=== PATIENT | male | born 1975 | race Two or more races ===

== ENCOUNTER 2018-05-30 05:59 | Inpatient (IN) | payer OTHER ==
[~2018-05-30] VITALS: Ht 180.3 cm; Wt 87.1 kg
[2018-05-30] VITALS (19 sets, daily range): BP systolic 95–131; BP diastolic 55–88
[2018-05-30] MEDS ORDERED: Zemuron 50mg/5ml Inj IV ONE (06:14)
[2018-05-30] MEDS ORDERED: Heparin 1000 units/ml 1ml Vial ONE (06:24)
[2018-05-30] MEDS ORDERED: Bupivacaine 0.5% 10ml INJ ONE (06:25)
[2018-05-30] MEDS ORDERED: Lidocaine 1% Plain 30 ml INJ ONE ×2 (06:25→06:37)
[2018-05-30] MEDS ORDERED: Thrombin 5000 units TOPIC ONE (06:25)
[2018-05-30] MEDS ORDERED: Ropivacaine 5mg/ml Vial 30ml INJ ONE (06:25)
[2018-05-30] MEDS ORDERED: Bacitracin 50000 Units Vial ONE (06:26)
[2018-05-30] MEDS ORDERED: LR 1000ml 1,000 ML IVLG SCH (06:31)
[2018-05-30] MEDS ORDERED: NKM (06:33)
--- NOTE | 2018-05-30 06:33 | Anethesia Preoperative Eval ---
Anesthesia Pre-op PMH/ROS General Date of Evaluation: May 30, 2018 Time of Evaluation: 07:11 Anesthesiologist: Celia ASA Score: ASA 2 Mallampati Score Class I : Soft palate, uvula, fauces, pillars visible Class II: Soft palate, uvula, fauces visible Class III: Soft palate, base of uvula visible Class IV: Only hard plate visible Mallampati Classification: Class II Surgeon: Vasile Diagnosis: Back Pain Surgical Procedure: ALIF L4-5, L5-S1 Anesthesia History: none Family History: no anesthesia problems Allergies: Coded Allergies: No Known Allergies (Unverified , 05/30/18) Medications: see eMAR Patient NPO?: Yes NPO Date: May 29, 2018 NPO Time: 2199 Past Medical History Pulmonary: Reports: asthma Anesthesia Pre-op Phys. Exam Physician Exam Last Vital Signs Date Time Temp Pulse Resp B/P (MAP) Pulse Ox O2 Delivery O2 Flow Rate FiO2 05/30/18 06:25 Room Air 05/30/18 06:25 97.2 76 18 124/69 (87) 100 Constitutional: NAD Neurologic: CN 2-12 intact Cardiovascular: RRR Respiratory: CTA Gastrointestinal: S/NT/ND Airway Exam Mallampati Score: Class II MO: full ROM: full Teeth: missing, intact Anesthesia Pre-op A/P Risk Assessment & Plan Assessment: ASA 2 Plan: GA, GlideScope Go, SED Status Change Before Surgery: No Pre-Antibiotics Dru Grams Ancef IV Given Within 1 Hr of Incision: Yes Time Given: 07:31 Jaxson Yang MD May 30, 2018 06:33
[2018-05-30] MEDS ORDERED: Sodium Chloride 10ml vial INJ ONE (06:41)
[2018-05-30] MEDS ORDERED: Lidocaine 1% MPF 10mg/ml 5ml ONE (06:41)
[2018-05-30] MEDS ORDERED: Dexamethasone 4mg/ml vial ONE (06:41)
[2018-05-30] MEDS ORDERED: Ketorolac 30mg Inj IV PRN ×2 (06:45)
[2018-05-30] MEDS ORDERED: LORazepam Inj 2mg/ml 1ml IV PRN (06:45)
[2018-05-30] MEDS ORDERED: Metoclopramide 10mg/2ml Inj IVP PRN (06:45)
[2018-05-30] MEDS ORDERED: DiphenhydrAMINE 50mg/ml Inj IVP PRN (06:45)
[2018-05-30] MEDS ORDERED: oxyCODONE HCL/Acetaminophen 5/325mg ORAL PRN (06:45)
[2018-05-30] MEDS ORDERED: fentaNYL 100 mcg/2 mL IV PRN (06:45)
[2018-05-30] MEDS ORDERED: Meperidine 50mg/ml Inj(FOR RIGORS ONLY) IVP PRN (06:45)
[2018-05-30] MEDS ORDERED: HYDROcodone/Acetamin 7.5/325 tab ORAL PRN (06:45)
[2018-05-30] MEDS ORDERED: Norco 5mg/325mg tab ORAL PRN (06:45)
[2018-05-30] MEDS ORDERED: Atropine Sulfate 0.4mg/ml inj IVP PRN (06:45)
[2018-05-30] MEDS ORDERED: Midazolam 2mg/2ml Inj IVP PRN (06:45)
[2018-05-30] MEDS ORDERED: Hydromorphone 0.5mg/0.5ml inj IVP PRN (06:45)
[2018-05-30] MEDS ORDERED: LR 1000ml ONE (07:00)
[2018-05-30] MEDS ORDERED: ceFAZolin sod 1 GM in NS 55 ML IVPB ONE (07:00)
[2018-05-30] MEDS ORDERED: Dexamethasone 20mg/5ml IVP ONE (07:00)
[2018-05-30] MEDS ORDERED: Propofol 1,000mg/ 100ml btl IV ONE (07:00)
[2018-05-30] MEDS ORDERED: NS Irrig 1000ml ONE (07:00)
[2018-05-30] MEDS ORDERED: Sterile Water Irrig 1000ml IRRIG ONE (07:00)
[2018-05-30] MEDS ORDERED: Acetaminophen (Non formulary) 100 ML IV ONE (07:00)
--- NOTE | 2018-05-30 07:06 | Immediate Post-Op Evaluation ---
Immediate Post-Op Evalulation Immediate Post-Op Evalulation Procedure: ALIF L4-5, L5-S1, Post Pedicle Screws Date of Evaluation: May 30, 2018 Time of Evaluation: 11:19 IV Fluids: 1000 LR Blood Products: 0 Estimated Blood Loss: 50 Urinary Output: 200 Blood Pressure Systolic: 122 Blood Pressure Diastolic: 71 Pulse Rate: 66 Respiratory Rate: 16 O2 Sat by Pulse Oximetry: 99 Temperature (Fahrenheit): 98.4 Pain Score (1-10): 2 Nausea: No Vomiting: No Complications 0 Patient Status: awake, reacts, patent, extubated, none Hydration Status: adequate Dru Grams Ancef IV Given Within 1 Hr of Incision: Yes Time Given: 07:31 Jaxson Yang MD May 30, 2018 07:06
--- NOTE | 2018-05-30 07:19 | Pre-Procedure Note/Attestation ---
Pre-Procedure Note/Attestation Complete Prior to Procedure Planned Procedure: not applicable Procedure Narrative: ALIF L4-L5, L5-S1 internal fixation Possible pedicle screws L4-L5=S1 L5-S1 discectomy Attestation I attest that I discussed the nature of the procedure; its benefits; risks and complications; and alternatives (and the risks and benefits of such alternatives ), prior to the procedure, with the patient (or the patient's legal retail representative). I attest that, if there was a reasonable possibility of needing a blood transfusion, the patient (or the patient's legal retail representative) was given the [facility] standardized written summary, pursuant to the Christiano Yolanda Blood Safety Act ([place] Health and Safety Code # 1645, as amended). I attest that I re-evaluated the patient just prior to the surgery and that there has been no change in the patient's H&P, except as documented below: Edgar Burnette MD May 30, 2018 07:19
[2018-05-30] MEDS ORDERED: fentaNYL 100 mcg/2 mL IV ONE ×2 (07:56→10:14)
[2018-05-30] MEDS ORDERED: Metoprolol 5mg/5ml Inj ONE (07:57)
[2018-05-30] MEDS ORDERED: Labetalol 5mg/ml 20ml vial IV ONE (08:06)
--- NOTE | 2018-05-30 09:56 | 48 Hour Post Anesthesia Eval ---
Post Anesthesia Evaluation Procedure: ALIF L4-5, L5-S1, Post Pedicle Screws Date of Evaluation: May 30, 2018 Time of Evaluation: 13:43 Blood Pressure Systolic: 118 0: 64 Pulse Rate: 71 Respiratory Rate: 18 Temperature (Fahrenheit): 98.6 O2 Sat by Pulse Oximetry: 99 Airway: patent Nausea: No Vomiting: No Pain Intensity: 3 Hydration Status: adequate Cardiopulmonary Status: Stable Mental Status/LOC: patient returned to baseline Follow-up Care/Observations: 0 Post-Anesthesia Complications: 0 Follow-up care needed: N/A Jaxson Yang MD May 30, 2018 09:56
[2018-05-30] MEDS ORDERED: Neostigmine 1mg/ml 10ml Inj ONE (10:45)
[2018-05-30] MEDS ORDERED: Glycopyrrolate 0.2mg/ml 1ml Vial ONE (10:45)
[2018-05-30] MEDS ORDERED: Naloxone 0.4mg/ml Inj ONE (10:48)
--- NOTE | 2018-05-30 11:09 | Brief Operative Note ---
Immediate Post Operative Note Operative Note Pre-op Diagnosis: Trauma Lumbar Soine instabilit, HNP Procedure: ALIF L4-L5, L5-S1 Anterior internal fixation, Microscope, Posterior microdiscectomy L5-S1 Post-op Diagnosis: same as pre-op Findings: consistent w/pre-op dx studies Surgeon: Vasile OROSCO Evidence Technician: Abby Agee MD, MD Anesthesiologist: Celia OROSCO Anesthesia: general Specimen: yes Complications: none Condition: stable Fluids: anesthesia Estimated Blood Loss: minimal Drains: none Implant(s) used?: Yes Edgar Burnette MD May 30, 2018 11:09
[2018-05-30] MEDS ORDERED: Rate Change PCA 1 Each MISC PRN ×2 (11:30)
[2018-05-30] MEDS ORDERED: PCA Morphine 1mg/ml 30 ML IV PRN (11:30)
[2018-05-30] MEDS: PCA Morphine 1mg/ml 30 ML IV PRN (11:41)
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
[2018-05-30] MEDS ORDERED: PCA Education Pamphlet MISC ONE (12:00)
--- NOTE | 2018-05-30 13:30 | NUR ---
NURSE NOTES: Received report from Denisa RN, pt a/a/o x4 with no signs of distress, however pt complains of pain 02/26 RN instructed and reinforced how to use CHAR PULLER. Morris in place draining clear yellow urine. surgical dressing anterior and posterior dry and intact. IV on right hand gauge #18 D21/2 NS @125ml/hr. pt is NPO except ice chips and meds. call light within reach, bed in lowest position. side rales up x2. I will f/u as needed.
[2018-05-30] MEDS ORDERED: Naloxone 0.4mg/ml Inj IVP PRN (14:00)
[2018-05-30] MEDS ORDERED: Chloraseptic Spray 20mL Bottle ORAL PRN (14:00)
[2018-05-30] MEDS: Morphine Sulfate 4mg/ml Inj (IV/IM USE ONLY) IM PRN ×2 (14:55→18:36)
--- NOTE | 2018-05-30 15:38 | Diagnostic Imaging Report ---
Indication: Intraoperative imaging Comparison: None Findings: 3 intraoperative views of the lumbar spine were obtained. Localization followed by anterior fusion discectomy corpectomy at L4-5 and L5-S1 demonstrated. IMPRESSION: Intraoperative imaging
[2018-05-30] MEDS: D5 1/2NS 1,000 ML IV SCH ×2 (15:46→23:07)
[2018-05-30] MEDS: ceFAZolin sod 1 GM in D5W 55 ML IV SCH ×2 (15:48→23:07)
--- NOTE | 2018-05-30 17:17 | NUR ---
CASE MANAGEMENT:REVIEW 43YR OLD MALE HERE FOR ELECTIVE SURGERY SI: TRAUMA LUMBAR INSTABILITY 98.2 81 18 124/81 100% ON RA IS: TO SURGERY: ALIF IV ANCEF Q8HRS CARD STRIPPER MORPHINE IVF@125/HR : TO MED/SURG UNIT INTERQUAL CRITERIA MET
[2018-05-30] MEDS ORDERED: PCA shift volume MISC SCH (19:00)
--- NOTE | 2018-05-30 19:00 | Operative Note - Dictated ---
DATE OF OPERATION: 05/30/2018 VASCULAR SURGEON: Hair Agee M.D. SPINE SURGEON: Edgar Burnette M.D. PREOPERATIVE DIAGNOSIS: Lumbar pain. POSTOPERATIVE DIAGNOSIS: Lumbar pain. PROCEDURE PERFORMED: 1. Anterior retroperitoneal exposure of L4-L5 vertebral interspace. 2. Anterior retroperitoneal exposure of L5-S1 vertebral interspace. INDICATIONS: The patient is a very pleasant gentleman who was seen in my office prior to surgery. He has been scheduled for anterior fusion at L4-L5 and L5-S1. He has no prior anterior spine surgery. No history of deep venous thrombosis or bleeding complications. He has been made aware of the risks of surgery including vascular injury, possible need for blood transfusion, and deep venous thrombosis. DESCRIPTION OF FINDINGS: A low vertical midline incision was used. Left retroperitoneal approach was used. There was no peritoneal or ureteral violation. There was no vascular injury. Exposure of both L4-L5 and L5-S1 were able to be exposed below the iliac bifurcation due to cephalad bifurcation and confluence of the iliac vessels. On completion, the peritoneum and ureter were intact. Iliac vessels were intact. Fluoroscopy was used to confirm both levels prior to instrumentation. DESCRIPTION OF PROCEDURE: The patient was taken to operating room, general anesthesia was used. antibiotics were given. The patient's abdomen was prepped and draped. Appropriate time-outs were taken. A low-vertical midline incision was made infraumbilically. The anterior fascia was incised longitudinally in the midline. A plane was identified posterior to the left rectus abdominis developed posterolaterally to the patient's left. The retroperitoneal space entered below the arcuate line. The peritoneum and ureter mobilized towards the patient's right exposing the left common iliac artery and vein. Dissection was carried on undersurface of left common iliac vein and the middle sacral vessels ligated with vascular clips and divided and this allowed us to retract the soft tissue off the anterior surface of the L5-S1. The Omni retractors was set in place and was fluoroscopy used to confirm the appropriate level. Instrumentation performed at L5-S1 dictated separately. The retractor was then repositioned superiorly. It was noted that the left iliac artery and vein were displaced laterally with relationship to L4-L5 and therefore it was safe to expose L4-L5 below the iliac bifurcation with retraction of the confluence of the left iliac vein superiorly and retraction of the right and left iliac vessels towards laterally. The Omni retractor was once again set in place. Fluoroscopy was used to confirm the appropriate level. The instrumentation performed L4-L5 dictated separately. On completion, retractor was gently removed. The peritoneum and ureter were intact. Iliac vessels were intact. Anterior fascia was closed using #1 PDS in a running fashion and the skin and subcutaneous tissue were closed with 3-0 Vicryl and 4-0 Monocryl running subcuticular closure technique. ESTIMATED BLOOD LOSS: Less than 100 mL. COMPLICATIONS: None. Hair Agee M.D. DR: LYNDSAY JOB#: [id number] CC:
--- NOTE | 2018-05-30 19:30 | NUR ---
NURSE NOTES: Received report & pt from Nahed RN/Sallie RN. Pt lying in bed, a&x4, in room air. No s/f of acute distress & no c/o pain at his time. Morris intact & draining yellow urine output to gravity. Surgical dressing C/D/I. IV site intact with IVF running as ordered. LOOP TENDER settings checked with RN. Bed in lowest position, call light & LOOP TENDER pump within reach. Will continue to monitor.
--- NOTE | 2018-05-30 19:30 | NUR ---
NURSE NOTES: Patient alert, oriented x4, vitals obtained every 30 mins x4, then every 1 hour x 2, stable. 3LNC, no respiratory distress, IV to right hand, D5.45 at 125 ml/hr. COMPUTER EDUCATION TEACHER (Morphine) in place, patient instructed on use, verbalized understanding. Patient experiencing severe breakthrough pain, rating 8, with COMPUTER EDUCATION TEACHER use, RN medicated with Morphine Sulfate 4 mg IM, patient verbalizes improvement in pain. NPO, tolerating ice chips, no NV. Bilateral SCDs in place. RN encouraged IS use. Morris draining to gravity. Call light in reach, bed in lowest position, patient remains safe.
--- NOTE | 2018-05-30 19:50 | NUR ---
HAND-OFF: Report given to Sallie EMMANUEL, pt in stable condition.
[2018-05-31] VITALS: BP 121/75
[2018-05-31 04:00] VITALS: BP 124/74
[2018-05-31] MEDS: PCA Morphine 1mg/ml 30 ML IV PRN (04:45)
[2018-05-31] MEDS: D5 1/2NS 1,000 ML IV SCH ×3 (06:00→17:27)
[2018-05-31] MEDS: ceFAZolin sod 1 GM in D5W 55 ML IV SCH (06:49)
[2018-05-31] MEDS: PCA shift volume MISC SCH ×2 (07:06→19:00)
--- NOTE | 2018-05-31 07:30 | NUR ---
HAND-OFF: Report given to Rachid Sunshine RN.
--- NOTE | 2018-05-31 07:30 | Progress Note ---
DATE: 05/31/2018 ACUTE PAIN MANAGEMENT PHYSICIAN PROGRESS NOTE MEDICATIONS: Medication administration record reviewed. Medications include Phenergan, Chloraseptic spray, Zofran, Narcan, morphine, morphine PARK WARDEN, [place], Pepcid, Benadryl, Catapres, Soma, Mylanta, and Fioricet. LABORATORY STUDIES: No interval laboratory studies. OBJECTIVE: VITAL SIGNS: Within normal limits. Afebrile, pulse 74, respirations 18, blood pressure 124/74, and oxygen saturation 100% on room air. I spent over 60 minutes in consultation today. I saw the patient at the bedside after discussion with the nurse RN, Dax. The patient is neurologically intact. He has had good motor strength with 5/5 dorsiflexion and 5/5 plantar flexion in bilateral lower extremities. He is breathing comfortably and denies any shortness of breath. After his ALIF procedure, he still is not yet passing flatus. He remains NPO except for medications and ice chips while we wait and improvement in his bowel function. He does have bowel sounds, but is not burping or passing flatus yet. The patient will start with physical therapy training later today. He has been very compliant using his incentive spirometer. I will continue the PARK WARDEN morphine unit for now. He has had no adverse side effects and the PARK WARDEN is providing good analgesia. I have made available multiple p.r.n. medications for breakthrough pain including [place], Soma, and intramuscular morphine. I will encourage these medications once the patient's diet is advanced. He will continue with sequential compression pneumatic devices in place for DVT prophylaxis. Overall, the patient is progressing well after his ALIF spinal surgery procedure. We will see how the patient advances with physical therapy training and his bowel function; while we provide supportive care for his rehabilitation. The patient is agreeable to the proposed plan and compliance. Saleem Herron M.D. DR: TURNER JOB#: [id number] CC:
--- NOTE | 2018-05-31 07:40 | NUR ---
NURSE NOTES: Received pt from LIEN Rizo, pt was watching TV, no acute distress, AUTO TECH with pain management. call light w/in reach.
[2018-05-31 08:00] VITALS: BP 125/80
[2018-05-31] MEDS: Morphine Sulfate 4mg/ml Inj (IV/IM USE ONLY) IM PRN ×2 (10:07→20:29)
[2018-05-31] MEDS ORDERED: D5 1/2NS 1000ml IV ONE (10:17)
--- NOTE | 2018-05-31 10:26 | NUR ---
PT Note PT eval completed, treatment initiated. Patient is cooperative; required max cues to observe proper log rolling and body mechanics. Patient needs PT services to address bed mobility, transfers, gait, pain and education/training on proper body mechanics/log rolling techniques. Addendum: 05/31/18 at 1027 by MARIA EUGENIA MONTANO PT Amended: Links added.
[2018-05-31 12:00] VITALS: BP 117/64
[2018-05-31 16:00] VITALS: BP 114/71
--- NOTE | 2018-05-31 17:04 | Cardiology Progress Note ---
Assessment/Plan Assessment/Plan [id number] Objective Last 24 Hour Vital Signs Date Time Temp Pulse Resp B/P (MAP) Pulse Ox O2 Delivery O2 Flow Rate FiO2 05/31/18 08:06 Room Air Room Air 05/31/18 08:00 17 05/31/18 08:00 97.5 85 17 125/80 (95) 98 05/31/18 04:00 17 05/31/18 04:00 97.6 74 17 124/74 (91) 100 05/31/18 00:00 17 05/31/18 00:00 98.1 79 17 121/75 (90) 99 05/30/18 20:04 Room Air Room Air 05/30/18 20:00 97.6 74 18 126/77 (93) 99 05/30/18 20:00 17 Intake and Output 05/30/18 05/31/18 19:00 07:00 Intake Total 1775 ml 1000 ml Output Total 400 ml 3000 ml Balance 1375 ml -2000 ml Intake IV Total 1775 ml 1000 ml Output Urine Total 350 ml 3000 ml Estimated Blood Loss 50 ml Jarocho Nevarez MD May 31, 2018 17:04
[2018-05-31 20:00] VITALS: BP 122/74
--- NOTE | 2018-05-31 20:26 | NUR ---
HAND-OFF: Report given to LIEN Garcia. pt is stable condition.
--- NOTE | 2018-05-31 20:30 | NUR ---
NURSE NOTES: patient recieved. patietn in no acute distress at this time. patient complains of pain 10/10 at this time. see emar. patient awake alert and oriented x4. IV patent and asymptomatic. FRUIT DRYER patent and asymptomatic. patient educated on FRUIT DRYER. Morris draining and intact. bed in lowest position and locked. SCDs are on. call light within reach. will continue to monitor.
--- NOTE | 2018-05-31 22:15 | Operative Note - Dictated ---
DATE OF OPERATION: 05/30/2018 SURGEON: Edgar Burnette, Ph.D., M.D. CO-SURGEONS: 1. Hair Agee M.D., Vascular Surgeon. 2. Donell Mora M.D. ANESTHESIOLOGIST: Jaxson Yang M.D. ANESTHESIA: General with intubation. ESTIMATED BLOOD LOSS: Less than 50 mL. COMPLICATIONS: None. POSTOP CONDITION: Good/stable. SPECIMEN: Fragments of L4-L5 and L5-S1 to pathology. OPERATIVE PROCEDURES: 1. Anterior lumbar interbody fusion, L4-L5 and L5-S1. 2. Interpositional device placement at L4-L5 and L5-S1. 3. Anterior plate fixation at L4-L5 and L5-S1. 4. Placement of osteopromotive material bone morphogenic protein anterior L4-L5, L5-S1. 5. Posterior left hemilaminotomy with decompression. 6. Intraoperative fluoroscopy interpreted by surgeon. 7. SSEP monitoring. 8. High-powered microscopic dissection. DESCRIPTION OF PROCEDURE: The patient was brought back to the operating room and in the supine position, general anesthesia with intubation was induced. The anterior abdomen was sterilely prepped and draped free in usual sterile fashion. Please see separate operative report for exposure and closure, anterior approach, vascular surgery, Dr. Agee, Dr. Burnette as assist. A L5-S1 interval was identified in the AP and lateral fluoroscopic imaging planes interpreted by surgeons where the spinal needle placed midline with a spinal needle bent at 90-degree angles to avoid penetration greater than 3 mm into the disk space. Position was appropriately marked. Annulotomy was performed followed with diskectomy to but not through the posterior longitudinal ligament. Dissection to the left was carried through the posterior longitudinal ligament with retrieval of disc. No cerebrospinal fluid leakage noted anytime during the procedure. SSEP monitoring stable at all times. No EMG activity at anytime. After appropriate trials utilized per guidelines for instrumentation, the appropriate Aero-L prosthesis was sterilely packed with osteopromotive material bone morphogenic protein and inserted appropriately. Internal fixation branches placed under combination of direct observation and fluoroscopic guidance with appropriate locking. The wound was irrigated with antibiotic-containing saline. The prosthesis was incorporated into FloSeal. Anterior internal plate fixation in a compressive mode, a 25 mm screws, two into the inferior L5 and two into the superior S1 vertebral bodies was undertaken with excellent purchase. The screws were locked into position. Attention was turned to the L4-L5 interval. It was identified midline and laterally with identification utilizing direct observation and fluoroscopic guidance. Annulotomy was performed with resection of the intervertebral disc to but not through the posterior longitudinal ligament. SSEP monitoring remained stable at all times. No cerebrospinal fluid leakage was noted anytime during the procedure. The EMG activity negative. Interpositional grafting with appropriate dimension Aero-L graft containing osteopromotive material bone morphogenic protein was inserted. Of note is that the insertion device precludes insertion greater than 1 mm posterior to anterior vertebral body cortex. Internal fixation appliances were inserted appropriately in a compressive fashion with fluoroscopic and direct observation. The graft was incorporated in FloSeal. Closure, please see separate note. The patient was carefully turned from the supine to the prone position onto a separate operating table (Chidi table). Lumbodorsal spine was sterilely prepped and draped free in the usual sterile fashion. The anterior incision with accompanying bandage was protected during the transfer and good positioning. A longitudinal midline incision over the L5-S1 interval was placed after appropriate positioning of the incision was determined with fluoroscopic cross-table imaging under sterile conditions with the spine needle placed in the subcutaneous tissue only interpreted by surgeons. Longitudinal incision was sharply placed followed by electrocautery dissection through the subcutaneous tissue to the level of the lumbodorsal fascia that was incised left to midline over the L5-S1 intervals. Position confirmation was undertaken with markers in place and fluoroscopic imaging and interpretation by surgeons. Position was recorded. Marker removed. Under high-power magnification, with Midas Beau bur dissection, hemilaminotomy anterior L5 was undertaken with resection of the intervening ligament. Interspinous ligament structure maintained. Decompression was undertaken. Exploration did not reveal any additional compression of the exiting nerve root or thecal sac. SSEP monitoring remained stable at all times. Bleeding bone was cauterized with application of sterile wax. HemoSeal applied followed with FloSeal. The FloSeal applied under high-power magnification. The wound was re-irrigated with antibiotic-containing saline. Lumbodorsal fascia was reapproximated with Vicryl suture material. Subcutaneous tissue was reapproximated with inverted interrupted suture material. Dermis and epidermis further reapproximated with staple sutures. A sterile bandage was applied and maintained in place with tape. The patient was carefully turned from the prone to the supine position on the transport bed where he was awakened, extubated, and transported to postop recovery in good stable condition. Edgar Burnette M.D. DR: MARLEE JOB#: [id number] CC:
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
[2018-06-01] MEDS: D5 1/2NS 1,000 ML IV SCH ×4 (00:26→20:20)
[2018-06-01 04:00] VITALS: BP 103/65
[2018-06-01] MEDS: Morphine Sulfate 4mg/ml Inj (IV/IM USE ONLY) IM PRN ×2 (06:45→10:16)
[2018-06-01] MEDS ORDERED: Tamsulosin 0.4mg cap ORAL SCH ×2 (06:49→13:34)
[2018-06-01] MEDS: PCA shift volume MISC SCH (07:00)
[2018-06-01 07:30] LABS: BASOPHILS % (AUTO) 0.3 % (0.0-2.0); EOSINOPHILS % (AUTO) 0.2 % (0.0-3.0); HEMATOCRIT 41.9 % (42.0-52.0); HEMOGLOBIN 14.5 G/DL (14.2-18.0); LYMPHOCYTES % (AUTO) 10.5 % (20.0-45.0); MEAN CORPUSCULAR VOLUME 98 FL (80-99); MONOCYTES % (AUTO) 9.7 % (1.0-10.0); NEUTROPHILS % (AUTO) 79.2 % (45.0-75.0); PLATELET COUNT 387 K/UL (150-450); RED BLOOD COUNT 4.28 M/UL (4.70-6.10); RED CELL DISTRIBUTION WIDTH 11.2 % (11.6-14.8); WHITE BLOOD COUNT 15.1 K/UL (4.8-10.8)
--- NOTE | 2018-06-01 07:38 | NUR ---
HAND-OFF: Report given to .LIEN pinto
--- NOTE | 2018-06-01 07:47 | NUR ---
NURSE NOTES: Report received from LIEN Garcia. Pt in bed, awake, A/O x 4, no complaints of pain, respirations unlabored, no apparent distress, call light within reach, bed in lowest position.
[2018-06-01 08:00] VITALS: BP 128/85
[2018-06-01 08:18] LABS: ALANINE AMINOTRANSFERASE 29 U/L (12-78); ALBUMIN 2.8 G/DL (3.4-5.0); ALBUMIN/GLOBULIN RATIO 0.8 (1.0-2.7); ALKALINE PHOSPHATASE 64 U/L (46-116); ANION GAP 8 mmol/L (5-15); ASPARTATE AMINO TRANSFERASE 18 U/L (15-37); BILIRUBIN,TOTAL 1.2 MG/DL (0.2-1.0); BLOOD UREA NITROGEN 11 mg/dL (7-18); CALCIUM 8.2 MG/DL (8.5-10.1); CARBON DIOXIDE 26 MMOL/L (21-32); CHLORIDE 101 MMOL/L (98-107); CREATININE 1.5 MG/DL (0.55-1.30); POTASSIUM 3.5 MMOL/L (3.5-5.1); SODIUM 135 MMOL/L (136-145)
[2018-06-01 08:26] LABS: BILIRUBIN,DIRECT 0.3 MG/DL (0.0-0.3)
--- NOTE | 2018-06-01 09:15 | Progress Note ---
DATE: 06/01/2018 ACUTE PAIN MANAGEMENT PHYSICIAN PROGRESS NOTE MEDICATIONS: Medication administration record reviewed. Medications include Fioricet, Mylanta, Soma, Catapres, IV fluids, Benadryl, Pepcid, Perry, morphine USABILITY SPECIALIST, intramuscular morphine, Zofran, Chloraseptic, and Phenergan. LABORATORY STUDIES: No interval laboratory studies. OBJECTIVE: VITAL SIGNS: T-max and T-current earlier this morning at 4 a.m. of 100.6, pulse 110, respirations 20, blood pressure 103/65, and oxygen saturation 100% on room air. I spent over 60 minutes in consultation today. I discussed the case with the surgeon, Dr. Burnette, and saw the patient at bedside with the nurse, RN, Radha. The patient still has not yet passed flatus after his anterior lumbar interbody fusion procedure. We will continue to encourage aggressive ambulation to help restore his bowel function after this spine surgery. He denies any nausea symptoms, and remains on IV fluids for hydration. The patient continues to use his USABILITY SPECIALIST morphine unit. At this time, I will recommend to try to transition off of the USABILITY SPECIALIST by using the intramuscular morphine injections along with p.r.n. Perry and Soma. I demonstrated proper use of incentive spirometer and encouraged good pulmonary toilet. With the patient's fevers, certainly pulmonary atelectasis postoperatively is contributing to the postoperative fevers. The patient is alert and oriented x3. He is grossly neurologically intact. The patient understands the importance of ambulating and using the incentive spirometer aggressively to help with his rehabilitation. We will continue supportive care at this time while we await improvement in his bowel function. He will remain NPO except for ice chips and medications at this time. Lakisha Galvez JOB#: [id number] CC:
[2018-06-01] MEDS ORDERED: D5 1/2NS 1000ml IV ONE (09:35)
[2018-06-01] MEDS ORDERED: Tubing IV Secondary IV ONE (09:35)
[2018-06-01 12:00] VITALS: BP 115/66
--- NOTE | 2018-06-01 13:15 | NUR ---
NURSE NOTES: Pt unable to pee after DC of Morris, performed bladder scan at 1215 [address] Burnette exchange
--- NOTE | 2018-06-01 13:50 | NUR ---
NURSE NOTES: Spoke to regarding [employer] with new order - 1. D/C [employer] order. Order noted and carried out.
--- NOTE | 2018-06-01 14:20 | General Progress Note ---
Progress Note Progress Note POD 2 ambulatory resolution preop LE pain, Back Pain. difficulty voiding BS increasing NAD Motor 5/5: Tib ant, EHL, post tib, peroneus l/b, Hamstrings Soft Touch symmetrical L4, L5, S1. Impression / Plan: difficulty voiding secondary to pain medications. Discussion with Dr. Herron - pain management, d/c SALON COORDINATOR decrease narcotics Morris to be placed, d/c AM advance to clears diet ambulation. Bactrim DS bid while Morris in place. Edgar Burnette MD Jun 01, 2018 14:20
--- NOTE | 2018-06-01 15:34 | NUR ---
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
[2018-06-01 16:00] VITALS: BP 128/84
--- NOTE | 2018-06-01 17:28 | NUR ---
1600 temperature 102.8, rechecked temp 99.7 Addendum: 06/01/18 at 1728 by BRADLY PAZ RN Amended: Links added.
--- NOTE | 2018-06-01 19:47 | NUR ---
HAND-OFF: Report given to LIEN Rizo.
--- NOTE | 2018-06-01 19:48 | NUR ---
NURSE NOTES: Received report & pt from Rivka Lemons RN. Pt lying in bed, a&ox4, in room air, family members at bedside. No s/s of acute distress & no c/o pain at this time. Surgical dressing anterior & posterior C/D/I. Morris intact & draining to gravity yellow urine output. IV site intact with IVF running as ordered. Bed in lowest position, call light within reach. Will continue to monitor. Addendum: 06/02/18 at 0135 by Sallie Barbour RN CORRECTION: Pt received from Minerva Davis RN. Not Rivka Lemons.
[2018-06-01 20:00] VITALS: BP 106/71
[2018-06-01] MEDS: Bactrim-DS 1 tab ORAL SCH (20:20)
--- NOTE | 2018-06-01 20:30 | NUR ---
NURSE NOTES: 1999 oral temp 102.9; cooling measures provided & encouraged to use IS. Called Dr. Nevarez regarding fever with new orders 1. Blood culture stat x2 2. UA & C&S 3. Tylenol 650mg PO NOW; Orders noted & carried out. Will re-check temp after Tylenol is given.
--- NOTE | 2018-06-01 21:00 | NUR ---
NURSE NOTES: Urine sample sent down to lab
[2018-06-01 21:53] LABS: APPEARANCE,URINE CLEAR; BILIRUBIN, URINE NEGATIVE (NEGATIVE); GLUCOSE, URINE (UA) NEGATIVE (NEGATIVE); KETONES,URINE NEGATIVE (NEGATIVE); LEUKOCYTE ESTERASE ,URINE NEGATIVE (NEGATIVE); NITRITE,URINE NEGATIVE (NEGATIVE); PH,URINE 8 (4.5-8.0); PROTEIN,URINE 2+ (NEGATIVE); UROBILINOGEN,URINE NORMAL MG/DL (0.0-1.0)
[2018-06-01 21:54] LABS: COLOR,URINE YELLOW
--- NOTE | 2018-06-01 22:00 | NUR ---
NURSE NOTES: Rechecked oral temp; went down to to 99.4
[2018-06-02] VITALS: BP 115/72
[2018-06-02] MEDS: D5 1/2NS 1,000 ML IV SCH ×2 (02:52→08:36)
[2018-06-02 04:00] VITALS: BP 118/68
--- NOTE | 2018-06-02 05:45 | NUR ---
NURSE NOTES: Per pt, he passed gas x 3.
[2018-06-02] MEDS ORDERED: Tamsulosin 0.4mg cap ORAL ONE (06:11)
[2018-06-02] MEDS ORDERED: Bethanechol 25mg Tab ORAL ONE (06:11)
--- NOTE | 2018-06-02 06:55 | NUR ---
NURSE NOTES: Emptied 50ccs of urine from walker. Removed walker cath as ordered. Instructed pt to call & notify RN of first void. Will endorse to next shift.
--- NOTE | 2018-06-02 07:25 | NUR ---
HAND-OFF: Report given to Nahed EMMANUEL/Sallie EMMANUEL. Advanced pt's diet to regular as ordered since pt has been passing gas. F/u with dietary. Endorsed to AM to give Mobile during breakfast as per Dr. Herron's order
--- NOTE | 2018-06-02 07:30 | Progress Note ---
DATE: 06/02/2018 ACUTE PAIN MANAGEMENT PHYSICIAN PROGRESS NOTE MEDICATIONS: Medication administration record reviewed. Medication include Bactrim, Phenergan, Chloraseptic spray, Zofran, Narcan, morphine, Wamsutter, Pepcid, Benadryl, Catapres, Soma, Mylanta, and Fioricet. LABORATORY STUDIES: From yesterday, June 01, 2018 showed white count of 15, hematocrit 42, platelets 387. Sodium 135, potassium 3.5, chloride 101, bicarb 26, BUN 11, creatinine 1.5, glucose 98, calcium 8.2. Total bilirubin 1.2, direct bilirubin 0.3. AST 18, ALT 29, and alkaline phosphatase 64. Total protein 6.5. Albumin 2.8. Urinalysis shows 2+ protein. Negative nitrite, negative leukocyte esterase. Few bacteria. OBJECTIVE: VITAL SIGNS: Shows afebrile, T-max last night was 102.9, which is the T-max, pulse 92, respirations 17, blood pressure 115/72, oxygen saturation 99% on room air. I spent over 60 minutes in consultation today. I saw the patient at the bedside with the nurse RN, Sallie. I discussed the case in detail with the surgeon, Dr. Edgar Burnette. The patient just started passing positive flatus this morning. This is encouraging as he improves his gastrointestinal function after his ALIF, anterior lumbar interbody fusion surgical procedure. I would expect Dr. Burnette will likely advance the patient's diet shortly. After the patient's problems with urination yesterday, Dr. Nevarez had the nurses replaced the Morris catheter. I will defer the Morris care to Dr. Nevarez and Dr. Burnette. I will order a dose of Urecholine and Flomax to be given this morning as no further active orders are present on his medication administration list. I discontinued MATERIAL REQUISITIONER morphine unit yesterday and the patient has been tolerating his pain using primarily the p.r.n. Wamsutter and Soma. Breakthrough intramuscular morphine remains available as well for severe breakthrough episodes. The patient does have a good supply of Wamsutter for home usage. We will continue the patient's ambulation as tolerated. The patient did have a mildly elevated creatinine yesterday and I will repeat the laboratories again this morning to follow trends. Saleem Herron M.D. DR: TURNER JOB#: [id number] CC:
[2018-06-02 07:43] LABS: ANION GAP 6 mmol/L (5-15); BLOOD UREA NITROGEN 8 mg/dL (7-18); CALCIUM 8.4 MG/DL (8.5-10.1); CARBON DIOXIDE 26 MMOL/L (21-32); CHLORIDE 103 MMOL/L (98-107); CREATININE 1.4 MG/DL (0.55-1.30); POTASSIUM 3.7 MMOL/L (3.5-5.1); SODIUM 135 MMOL/L (136-145)
[2018-06-02 07:44] LABS: BASOPHILS % (AUTO) 0.5 % (0.0-2.0); EOSINOPHILS % (AUTO) 0.9 % (0.0-3.0); HEMATOCRIT 40.3 % (42.0-52.0); LYMPHOCYTES % (AUTO) 7.9 % (20.0-45.0); MEAN CORPUSCULAR VOLUME 97 FL (80-99); NEUTROPHILS % (AUTO) 81.7 % (45.0-75.0); PLATELET COUNT 368 K/UL (150-450); RED BLOOD COUNT 4.17 M/UL (4.70-6.10); RED CELL DISTRIBUTION WIDTH 11.1 % (11.6-14.8); WHITE BLOOD COUNT 12.5 K/UL (4.8-10.8)
[2018-06-02 08:00] VITALS: BP 119/80
--- NOTE | 2018-06-02 08:00 | NUR ---
NURSE NOTES: Report received from outgoing RN, rounds made. Patient alert, oriented x4, calm, resting in bed, semi-fowlers position. IV D5.45 @150 ml/hr to right hand, site intact, asymptomatic. Vitals stable. No NV. Morris out early this morning, no void yet. Encouraged oral intake. Instructed patient to void in urinal. Last BM Saturday05/30/2018. Anterior abdomen and posterior back dressing clean, dry, intact. Pain 7 to back. Will medicate as ordered. Bilateral SCDs in place. Call light in reach. Will continue to assess
[2018-06-02] MEDS: Bactrim-DS 1 tab ORAL SCH (08:35)
[2018-06-02] MEDS: HYDROcodone/Acetamin 10/325 tab ORAL PRN ×2 (08:36→12:37)
[2018-06-02] MEDS: Bethanechol 25mg Tab ORAL SCH ×2 (09:46→12:31)
--- NOTE | 2018-06-02 10:15 | NUR ---
NURSE NOTES: Patient medicated with [place] 10 mg/325 mg as ordered. Patient tolerated regular diet. Assisted to the bathroom, patient voided and had a bowel movement. Patient had mild nausea after bathroom, medicated with Zofran as ordered. No emesis. IV continues to infuse without difficulty. Encouraged PO intake. Discharge planning. Will continue to assess.
[2018-06-02 12:00] VITALS: BP 107/69
[2018-06-02] MEDS ORDERED: Bethanechol 25mg Tab ORAL SCH (13:00)
[2018-06-02] MEDS ORDERED: D5 1/2NS 1000ml IV ONE (15:00)
--- NOTE | 2018-06-02 15:45 | NUR ---
NURSE NOTES: Patient medicated for pain with Soma, tolerated well. Called Dr. Herron and Dr. Burnette for clarification on pain medication script frequency, left messages with call back number. Patient has Pax 10 mg/325 mg at home and will follow up with Dr. Burnette tomorrow. Vitals stable. Nausea improved. Patient instructed to use a pillow to splint abdomen with coughing. Will continue to assess.
--- NOTE | 2018-06-02 16:00 | NUR ---
NURSE NOTES: Received order for discharge home. Discharge instructions and belongings list given to patient and partner. IV removed prior to d/c. from previous note Nahed EMMANUEL called Dr. Burnette and Dr. Herron to get pain medication RX. per patient he stated that per Dr. Burnette he will brick picker his pain medication RX tomorrow morning at his office. pt left the floor via w/c with no signs of distress or other issues at this time. partner will provide transportation. I will f/u as needed.
[2018-06-02] MEDS ORDERED: Tamsulosin 0.4mg cap ORAL SCH (21:00)
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
== END 2018-06-02 16:10 | disposition home or self-care (01) | DRG 460 ==
LOC: SDSOVERFLO 05:59 → EDSTATUS 11:00 → 3E 13:20
PROC: 4A11X4G Monitoring of Peripheral Nervous Electrical Activity, Intraoperative, External Approach (ICD-10-PCS; principal; 2018-05-30 07:00)
PROC: 0SG30A0 Fusion of Lumbosacral Joint with Interbody Fusion Device, Anterior Approach, Anterior Column, Open Approach (ICD-10-PCS; principal; 2018-05-30 07:00)
PROC: 3E0U0GB Introduction of Recombinant Bone Morphogenetic Protein into Joints, Open Approach (ICD-10-PCS; principal; 2018-05-30 07:00)
PROC: 0ST40ZZ Resection of Lumbosacral Disc, Open Approach (ICD-10-PCS; principal; 2018-05-30 07:00)
PROC: 0SG00A0 Fusion of Lumbar Vertebral Joint with Interbody Fusion Device, Anterior Approach, Anterior Column, Open Approach (ICD-10-PCS; principal; 2018-05-30 07:00)
PROC: 0ST20ZZ Resection of Lumbar Vertebral Disc, Open Approach (ICD-10-PCS; principal; 2018-05-30 07:00)
DX: M51.26 Other intervertebral disc displacement, lumbar region (principal); M53.2X6 Spinal instabilities, lumbar region; V89.2XXS Person injured in unspecified motor-vehicle accident, traffic, sequela; G89.18 Other acute postprocedural pain; R33.9 Retention of urine, unspecified; R42 Dizziness and giddiness; J06.9 Acute upper respiratory infection, unspecified
CPT/HCPCS: 36415; 72020; 76001; 80048; 80053; 81001; 82248; 85025; 86850; 86900; 86901; 87040; 87081; 87086; 94003; 94150; J2405; J2710